=== PATIENT | male | born 1970 | race Caucasian/White ===

== ENCOUNTER → 2021-01-30 | Outpatient (CLI) | payer OTHER ==
[~2021-01-30] MED LIST: ELAVIL 50 MG TA50 MG PO; ELIQUIS5 MG PO; FLECAINIDE ACE150 MG PO; GABAPENTIN800 MG PO; GLUCOPHAGE 500500 MG PO; LIPITOR TAB 2020 MG PO; METOPROLOL SUCC50 MG PO; OMEPRAZOLE20 M1 PO; PROAIR DIGIHAL90 MCG INH; TRAMADOL HCL50 MG PO
[2021-01-30 11:20] LABS: HEMOGLOBIN 14.2 gm/dl (14.0-17.5); RED BLOOD COUNT 4.83 M/UL (4.20-5.50); WHITE BLOOD COUNT 6.2 K/UL (4.5-11.0)
[2021-01-30 11:35] LABS: BUN/CREATININE RATIO 16 (0-10)
== END ==
LOC: OPSV2 01-15 12:30
PROVIDERS: Orthopaedic Surgery
DX: Z01.818 Encounter for other preprocedural examination (principal); S82.892D Other fracture of left lower leg, subsequent encounter for closed fracture with routine healing
CPT/HCPCS: 36415; 80048; 85025; 93005

== ENCOUNTER → 2021-02-07 | Day surgery (SDC) | payer OTHER ==
[~2021-02-07] VITALS: Ht 175.3 cm; Wt 113.4 kg
== END | disposition home or self-care (01) ==
LOC: OR 01-17 12:15
DX: T84.117A Breakdown (mechanical) of internal fixation device of bone of left lower leg, initial encounter (principal); J45.909 Unspecified asthma, uncomplicated; M19.90 Unspecified osteoarthritis, unspecified site; K21.9 Gastro-esophageal reflux disease without esophagitis; E78.5 Hyperlipidemia, unspecified; I10 Essential (primary) hypertension; G47.30 Sleep apnea, unspecified; R60.1 Generalized edema; I48.91 Unspecified atrial fibrillation; F41.8 Other specified anxiety disorders; E11.40 Type 2 diabetes mellitus with diabetic neuropathy, unspecified; Z82.49 Family history of ischemic heart disease and other diseases of the circulatory system; Z83.3 Family history of diabetes mellitus; Z87.891 Personal history of nicotine dependence; Z79.84 Long term (current) use of oral hypoglycemic drugs; Z79.899 Other long term (current) drug therapy; Y83.8 Other surgical procedures as the cause of abnormal reaction of the patient, or of later complication, without mention of misadventure at the time of the procedure; Y79.8 Miscellaneous orthopedic devices associated with adverse incidents, not elsewhere classified
CPT/HCPCS: 73610; 76000; 82962; J0690; J2250; J2704; J3010; J7030; J7120